=== PATIENT | female | born 1980 | race African-American/Black ===

== ENCOUNTER 2019-12-15 13:28 | Emergency (ER) | payer SELFPAY ==
[~2019-12-15] VITALS: Ht 157.5 cm; Wt 75.0 kg
[2019-12-15] MEDS ORDERED: IV NORMAL SALINE 1000ML BAG 1,000 ML IV STA (14:13)
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
[2019-12-15 14:24] LABS: BILIRUBIN,URINE SMALL (NEG); CLARITY,URINE CLOUDY; COLOR,URINE AMBER; NITRITE,URINE NEGATIVE (NEG); PROTEIN,URINE 100 mg/dL (NEG-TRACE)
[2019-12-15 14:43] LABS: BASO % 0 % (0-3); EOS % 0 % (0-3); HEMATOCRIT 38.8 % (36.0-47.0); HEMOGLOBIN 13.2 g/dL (12.0-15.5); LYMPH # 3.3 x10^3/uL (1.0-4.8); LYMPH % 32 % (24-48); MEAN CORPUSCULAR HEMOGLOBIN 31 pg (25-35); MEAN CORPUSCULAR HGB CONC 34 g/dL (31-37); MEAN CORPUSCULAR VOLUME 92 fL (79-100); MONO # 0.7 x10^3/uL (0.0-1.1); MONO % 6 % (0-9); NEUT # 6.5 x10^3/uL (1.8-7.7); NEUT % 62 % (31-73); PLATELET COUNT 322 x10^3/uL (140-400); RED BLOOD COUNT 4.23 x10^6/uL (3.50-5.40); WHITE BLOOD COUNT 10.5 x10^3/uL (4.0-11.0)
[2019-12-15 14:48] LABS: SQUAMOUS EPITHELIAL CELL,UR MANY /LPF
[2019-12-15 14:49] LABS: BACTERIA,URINE MANY /HPF (0-FEW)
[2019-12-15 14:55] LABS: CALCIUM 9.6 mg/dL (8.5-10.1); CREATININE 0.5 mg/dL (0.6-1.0); POTASSIUM 3.3 mmol/L (3.5-5.1)
[2019-12-15 15:01] LABS: ALBUMIN 3.8 g/dL (3.4-5.0); ALBUMIN/GLOBULIN RATIO 0.9 (1.0-1.7); TOTAL BILIRUBIN 0.4 mg/dL (0.2-1.0); TOTAL PROTEIN 7.9 g/dL (6.4-8.2)
[2019-12-15] MEDS ORDERED: POTASSIUM CHLORIDE 20 MEQ TABLET.ER. PO ONE (15:30)
--- NOTE | 2019-12-15 15:41 | RAD ---
OB < 14 WKS History: Abdominal pain. Comparison: None. Technique: Grayscale and color Doppler imaging of the pelvis was performed using transabdominal technique. Findings: The uterus measures 10.0 x 10.0 x 10.0 cm in length. Single intrauterine gestation. [place]-rump length 6.4 cm. The estimated gestational age by ultrasound 12 weeks 5 days. heart rate 160 bpm. Right ovary measures 2.9 x 1.6 x 1.4 cm. Left ovary measures 3.6 x 2.2 x 2.3 cm. Complicated left ovarian follicle measures 1.9 cm, may represent corpus luteal cyst. No adnexal masses are seen. IMPRESSION: 1. Intrauterine gestational age 12 weeks 5 days with heart rate 160 bpm. Electronically signed by: Greg Frederick DO (12/15/2019 3:38 PM) [id number]
[2019-12-15] MEDS ORDERED: CEPH-264 PO (15:50)
[2019-12-15 16:00] VITALS: BP 121/65
== END 2019-12-15 16:10 | disposition home or self-care (01) ==
LOC: ER 13:28
DX: O23.41 Unspecified infection of urinary tract in pregnancy, first trimester (principal); R10.9 Unspecified abdominal pain
CPT/HCPCS: 36415; 76801; 80053; 81001; 81025; 84702; 85025; 86900; 86901; 87086; 99284; J7030